=== PATIENT | male | born 1955 | race Caucasian/White ===

== ENCOUNTER → 2020-12-19 | Outpatient (CLI) | payer OTHER ==
[~2020-12-19] MED LIST: BENADRYL 25MG C25 MG PO; PREDNISONE 50 M50 MG PO
== END ==
LOC: SLEEP 09-18 21:30
DX: R40.0 Somnolence (principal); G47.33 Obstructive sleep apnea (adult) (pediatric); I49.3 Ventricular premature depolarization
CPT/HCPCS: 95811